=== PATIENT | female | born 1985 | race Caucasian/White ===

== ENCOUNTER 2019-07-29 07:36 | Inpatient (IN) ==
[2019-07-29] MEDS: LACTATED RINGER'S 1,000 ML IV PRN ×2 (07:56→09:05)
[2019-07-29] MEDS ORDERED: OXYTOCIN 30 UNITS/500 ML BAG IV PRN ×2 (07:57→13:52)
[2019-07-29] MEDS ORDERED: ePHEDrine sulfate 50 MG/ML AMP ONE (08:08)
[2019-07-29] MEDS ORDERED: BUPIVACAINE 0.25% 30 ML VIAL ONE (08:08)
[2019-07-29] MEDS ORDERED: fentaNYL citrate 100 MCG/2 ML VIAL ONE (08:09)
[2019-07-29] MEDS ORDERED: fentaNYL 2MCG/ML ROPIV 1.25MG/ML 100 ML BAG EPI ONE (08:09)
[2019-07-29 08:22] LABS: Hematocrit (blood only) 38.2 % (37-47); Hemoglobin 13.7 g/dL (12.0-16.0); Mean Corpuscular Hemoglobin 32.2 pg (25-34); Mean Corpuscular Volume 89.9 fL (80-100); Mean Platelet Volume 10.2 fL (7.4-10.4); Platelet Count 227 K/uL (130-400); RDW Coefficient of Variation 13.5 % (11.5-14.5); Red Blood Count 4.25 M/uL (4.2-5.4); White Blood Count 13.12 K/uL (4.8-10.8)
[2019-07-29 08:27] LABS: Mean Corpuscular Hgb Conc 35.9 g/dL (32-36)
--- NOTE | 2019-07-29 08:42 | Obstetrical Progress Note ---
Date of Service July 29, 2019 Physical Exam Physical Exam: Admit Note 33 F P1001 at 40.2 weeks admitted in active labor. Patient is attempting . GBS is negative. FHT CAT 1. Cervix on admission is 8/90/-2/vertex. Will get epidural for pain management. Results & Data Vital Signs (Past 12 Hours) Vital Signs Pulse BP Pulse Ox 07/29/19 08:36 74 93 07/29/19 08:35 67 93 07/29/19 07:49 66 132/84
--- NOTE | 2019-07-29 09:03 | Anesthesiology Consultation ---
Date of Service July 29, 2019 Previous C Section Hypothyroidism Obesity Assessment & Plan (1) Encounter for pre-operative examination: Chart Review Chart Review: Patient NOT seen in Pre Admission Testing and Acceptable Risk for Labor Epidural Consults Requested none Pulmonary ASA ASA2 Proposed Anesthesia Anesthesia Type: CSE Risk / Benefits Reviewed With: PT / POA / Parent / Guardian, Accepts Plan and Informed Consent Obtained History Height/Weight Height: 5 ft 9 in Weight: 127.913 kg Allergies Allergy/AdvReac Type Severity Reaction Status Date / Time egg Allergy Severe HIVES-RASH Verified 07/29/19 07:53 Fish Containing Products Allergy Intermediate RASH Verified 07/29/19 07:53 nut - unspecified Allergy Intermediate RASH Verified 07/29/19 07:53 shellfish derived Allergy Intermediate RASH Verified 07/29/19 07:53 Medications Home Medications Medication Instructions Recorded Confirmed Last Taken cetirizine [Zyrtec] 10 mg PO DAILY 07/29/19 07/29/19 07/28/19 22:00 levothyroxine 100 mcg PO DAILY 07/29/19 07/29/19 07/29/19 05:30 vit-iron fum-folic ac 1 tab PO DAILY 07/29/19 07/29/19 07/28/19 22:00 [ Vitamin] Active Medications Generic Name Dose Route Start Last Admin Trade Name Melquiadesq PRN Reason Stop Dose Admin Lactated Ringer's 1,000 mls @ 125 mls/hr 07/29/19 07:57 07/29/19 07:56 Lr IV 07/31/19 07:56 999 mls/hr .Q8H PRN Administration L&D Protocol Protocol NPO Date Last Intake of Fluids: 07/29/19 Time Last Intake of Fluids: 06:00 Date Last Intake of Solids: 07/29/19 Time Last Intake of Solids: 06:00 Past Medical History Medical History Exanthem (Acute) Oligohydramnios Strep pharyngitis (Acute) Strep pharyngitis (Acute) Allergic reaction (Inactive) Allergy, food (Inactive) Exercise / Class Metabolic Activity II 4-5 Yardwork/Stairs/Walk up hill Past Family History Family History Other No pertinent family history in first degree relatives Past Anesthesia History No Hx of Anesthesia Complications and No Family Hx of Anesthesia Complications History of PONV No Hx of PONV and No Hx of Motion Sickness Social History Smoking Status: Never smoker Do You Dip or Chew Tobacco: No Hx Alcohol Use: No Hx Substance Use: No Physical Exam Vital Signs Last Vital Signs Pulse 96 H 07/29/19 08:58 BP 118/54 L 07/29/19 08:58 Pulse Ox 95 07/29/19 08:55 ENMT Mouth: no dentition abnormality Thyromental Distance: > or= 3.5 Finger Breadths Mallampati Class: II Neck normal visual inspection Respiratory normal respiratory effort Auscultation: lungs clear to auscultation bilaterally Cardiovascular Rate/Rhythm: regular rate and regular rhythm Psychiatric Orientation: alert Testing Laboratory Results 07/29/19 08:09
--- NOTE | 2019-07-29 09:08 | Obstetrical Progress Note ---
Date of Service July 29, 2019 Physical Exam Genitourinary: Manual OB Exam: + cervical dilation 9 cm, + cervical effacement 100%, + station 0 and + amniotic fluid meconium OB Exam Monitor Tracing: + external FHT monitor used, + scalp electrode used, + category II and + variable decelerations SROM during epidural placement Internal scalp lead applied patient placed in lleft lateral position Results & Data Vital Signs (Past 12 Hours) Vital Signs Pulse BP Pulse Ox 07/29/19 09:04 78 104/55 L 07/29/19 09:00 96 H 131/56 L 99 07/29/19 08:58 96 H 118/54 L 07/29/19 08:56 81 123/56 L 07/29/19 08:55 86 95 07/29/19 08:54 60 125/67 07/29/19 08:50 84 98 07/29/19 08:48 97 H 93 07/29/19 08:45 87 95 07/29/19 08:41 85 93 07/29/19 08:40 85 98 07/29/19 08:36 74 93 07/29/19 08:35 67 93 07/29/19 07:49 66 132/84
[2019-07-29] MEDS ORDERED: NALOXONE HCL 1 MG in SODIUM CHLORIDE 0.9% 1000ML 1,000 ML IV PRN (09:53)
[2019-07-29] MEDS ORDERED: NALOXONE HCL 0.4 MG/1 ML VIAL/CARP IV PRN (09:53)
[2019-07-29] MEDS ORDERED: ONDANSETRON INJ 2 MG/ML 2 ML VIAL IV PRN (09:53)
[2019-07-29] MEDS ORDERED: ePHEDrine sulfate 50 MG/ML AMP IV PRN (09:53)
[2019-07-29] MEDS ORDERED: DiphenhydrAMINE HCL 50 MG/ML VIAL IV PRN (09:53)
[2019-07-29] MEDS ORDERED: NALBUPHINE HCL INJ 10 MG/ML AMP IV PRN (09:53)
[2019-07-29] MEDS ORDERED: fentaNYL 2MCG/ML ROPIV 1.25MG/ML 100 ML BAG EPI PRN (09:53)
--- NOTE | 2019-07-29 13:07 | Delivery Summary ---
Vaginal Delivery Summary Date of Service July 29, 2019 Vaginal Delivery Summary Delivery Note () of live male over intact perineum SHIELA with nuchal cord x1 reduced at delivery with delayed cord clamping Apgars 8/9 weight pending. Cord blood obtained and placenta delivered spontaneously and intact. No tears. EBL 200 ml. Final sponge and instrument count are correct. Mom and baby stable.
--- NOTE | 2019-07-29 13:43 | Anesthesia Procedure Note ---
Date of Service July 29, 2019 Anesthesia Post Epidural Note Vital Signs Vital Signs: Temp Pulse Resp BP Pulse Ox 37.0 C 84 20 125/65 98 07/29/19 11:00 07/29/19 13:29 07/29/19 12:30 07/29/19 13:29 07/29/19 12:56 Pain Intensity Abdomen: Pain Intensity: 0 Notes Mental Status: alert / awake / arousable Nausea / Vomiting: adequately controlled Pain: adequately controlled Airway Patency, RR, SpO2: stable & adequate BP & HR: stable & adequate Hydration State: stable & adequate Neuraxial Anesthesia: was administered and sensory block is resolving Anesthetic Complications: no major complications apparent and Pt Satisfied with anesthetic care Epidural: Removed without complications and With tip intact
[2019-07-29] MEDS ORDERED: SUPERCREAM 0.870% 15 GM JAR EXT PRN (13:52)
[2019-07-29] MEDS ORDERED: ACETAMINOPHEN 325 MG TAB PO PRN (13:52)
[2019-07-29] MEDS ORDERED: BENZOCAINE 20% AER SPR 82.5 GM CAN EXT PRN (13:52)
[2019-07-29] MEDS ORDERED: DIPHTHERIA/TETANUS/PERTUSSIS 0.5 ML SYR/VIAL IM ONE (13:52)
[2019-07-29] MEDS ORDERED: bisacodyL 10 MG SUPP PR PRN (13:52)
[2019-07-29] MEDS ORDERED: HYDROCORTISONE ACETATE 25 MG SUPP PR PRN (13:52)
[2019-07-29] MEDS: IBUPROFEN 600 MG TAB PO PRN ×2 (16:09→20:22)
[2019-07-29] MEDS: DOCUSATE SODIUM 100 MG CAP PO SCH (20:21)
[2019-07-29] MEDS ORDERED: CETIRIZINE HCL 10 MG TABLET PO SCH (21:00)
[2019-07-30 06:15] LABS: Hematocrit (blood only) 35.3 % (37-47); Mean Corpuscular Hemoglobin 31.1 pg (25-34); Mean Corpuscular Volume 91.5 fL (80-100); Mean Platelet Volume 10.3 fL (7.4-10.4); Platelet Count 183 K/uL (130-400); RDW Coefficient of Variation 13.8 % (11.5-14.5); RDW Standard Deviation 45.3 fL (36.4-46.3); Red Blood Count 3.86 M/uL (4.2-5.4); White Blood Count 10.78 K/uL (4.8-10.8)
[2019-07-30] MEDS ORDERED: LEVOTHYROXINE SODIUM 100 MCG TABLET PO SCH (06:30)
[2019-07-30] MEDS ORDERED: FERROUS SULFATE 325 MG TAB PO SCH (08:00)
[2019-07-30] MEDS ORDERED: PRENATAL VITAMIN 1 TAB PO SCH (08:00)
[2019-07-30] MEDS: IBUPROFEN 600 MG TAB PO PRN ×2 (08:39→16:11)
[2019-07-30] MEDS: DOCUSATE SODIUM 100 MG CAP PO SCH (08:39)
--- NOTE | 2019-07-30 08:44 | Obstetrical Progress Note ---
Date of Service July 30, 2019 Subjective Patient is seen and examined. She feels well, no complaints. Ambulating without dizziness Voiding without difficulty Tolerating regular diet with out N&V Bleeding is minimal No fever/ chills/ CP/ SOB/ N&V/ Leg pain Breast feeding without problems Vital Signs Temp Pulse Resp BP 07/30/19 03:30 36.9 C 73 16 118/76 07/30/19 00:20 37.0 C 76 16 124/81 Lab Results 07/29/19 07/29/19 07/30/19 Range/Units 08:09 08:09 06:03 WBC 13.12 H (4.8-10.8) K/uL RBC 4.25 (4.2-5.4) M/uL Hgb 13.7 (12.0-16.0) g/dL Hct 38.2 (37-47) % MCV 89.9 (80-100) fL MCH 32.2 (25-34) pg MCHC 35.9 (32-36) g/dL RDW Std Deviation 44.0 (36.4-46.3) fL RDW Coeff of Suri 13.5 (11.5-14.5) % Plt Count 227 (130-400) K/uL MPV 10.2 (7.4-10.4) fL Blood Type O Negative O Negative Antibody Screen NEGATIVE Cancelled Screen Negative (Negative) 07/30/19 Range/Units 06:03 WBC 10.78 (4.8-10.8) K/uL RBC 3.86 L (4.2-5.4) M/uL Hgb 12.0 (12.0-16.0) g/dL Hct 35.3 L (37-47) % MCV 91.5 (80-100) fL MCH 31.1 (25-34) pg MCHC 34.0 (32-36) g/dL RDW Std Deviation 45.3 (36.4-46.3) fL RDW Coeff of Suri 13.8 (11.5-14.5) % Plt Count 183 (130-400) K/uL MPV 10.3 (7.4-10.4) fL Blood Type Antibody Screen Screen (Negative) PE: General: Alert, orientedx3, NAD Abd: soft, NT, fundus firm, below Umbilicus Perineum intact, Lochia rubra minimal Ext; NT, no edema AP: 33 yo s/p / , ppd# 1 VSS Afebrile doing well Continue routine care All questions were answered D/C home tomorrow Results & Data Vital Signs (Past 12 Hours) Vital Signs Temp Pulse Resp BP 07/30/19 03:30 36.9 C 73 16 118/76 07/30/19 00:20 37.0 C 76 16 124/81
[2019-07-30] MEDS ORDERED: NON-FORMULARY MEDICATION (Prenatal Vit-Iron Fum-Folic Ac [Prenatal Vitamin] 1 TAB) PO SCH (09:00)
[2019-07-30] MEDS ORDERED: CETIRIZINE HCL 10 MG TABLET PO SCH (09:00)
[2019-07-30] MEDS ORDERED: bisacodyL 5 MG TABEC PO SCH (20:00)
== END 2019-07-30 18:45 | disposition home or self-care (01) | DRG 807 ==
LOC: OPB 07:36 → 4S1 07:40 → 4S2 16:11